=== PATIENT | male | born 1965 | race Caucasian/White ===

== ENCOUNTER 2023-02-17 21:44 | Emergency (ER) | payer BC ==
[2023-02-17] MEDS ORDERED: Bacitracin Oint 1 GM U/D Packet TOP ONE (23:11)
== END 2023-02-17 23:21 | disposition home or self-care (01) ==
LOC: JP.ED 21:44
DX: S61.411A Laceration without foreign body of right hand, initial encounter (principal); I10 Essential (primary) hypertension; E11.9 Type 2 diabetes mellitus without complications; J45.909 Unspecified asthma, uncomplicated; Z91.048 Other nonmedicinal substance allergy status; Z91.013 Allergy to seafood; Z79.82 Long term (current) use of aspirin; Z79.84 Long term (current) use of oral hypoglycemic drugs; Z79.899 Other long term (current) drug therapy; W45.8XXA Other foreign body or object entering through skin, initial encounter
CPT/HCPCS: 99283